=== PATIENT | female | born 1955 | race Caucasian/White ===

== ENCOUNTER 2016-10-18 08:50 | Emergency (ER) | payer BC ==
[~2016-10-18] VITALS: Ht 167.6 cm; Wt 78.4 kg
[~2016-10-18 08:50] MED LIST: FLEXERIL OR; PERCOCET 5/325M1 TAB PO; SINGULAIR 10 MG10 MG PO; SYNTHROID88 MCG PO; TRIAMT/HCTZ1 TAB OR
[2016-10-18 09:35] LABS: ALBUMIN 4.4 g/dL (3.2-5.0); ALKALINE PHOSPHATASE 113 u/l (38-126); ANION GAP 14 (6-22 (CALC)); BILIRUBIN, TOTAL 0.6 mg/dL (0.0-1.4); BUN 10 mg/dL (7-17); BUN/CREATININE RATIO 13 (12-20 (CALC)); CALCIUM 9.6 mg/dL (8.4-10.2); CARBON DIOXIDE 28 mmol/l (22-30); CHLORIDE 97 mmol/l (95-108); CREATININE 0.8 mg/dL (0.5-1.0); GFR > 60 ML/MIN (>=60 (CALC)); GFR FOR AFR.AMER. > 60 ML/MIN (>=60 (CALC)); GLUCOSE 104 mg/dL (65-105); HEMATOCRIT 43.6 % (37.0-47.0); HEMOGLOBIN 14.6 g/dl (12.0-16.0); IMMATURE GRANULOCYTES 0.1 % (0.0-1.0); MEAN CELL VOLUME 93.4 fL CALC (80.0-100.0); MEAN CORPUSCULAR HGB 31.3 pG CALC (26.0-32.0); MEAN CORPUSCULAR HGB CONC 33.5 g/L CALC (32.0-36.0); POTASSIUM 3.6 mmol/l (3.5-5.1); RED BLOOD COUNT 4.67 mill/uL (4.20-5.60); SGOT/AST 24 u/l (14-36); SGPT/ALT 23 u/l (9-52); SODIUM 136 mmol/l (137-146); TOTAL PROTEIN 8.3 g/dL (6.3-8.2)
[2016-10-18 09:47] LABS: D-DIMER 0.21 mg/L (0.19-0.60); INTERNATIONAL NORMALIZED RATIO 0.9 RATIO (0.7-1.3); MYOGLOBIN 26 ng/mL (0 - 62); PROTHROMBIN TIME 10.2 SECONDS (9.0-12.5)
[2016-10-18 11:32] LABS: URINE BILIRUBIN - DIPSTICK NEGATIVE (NEGATIVE); URINE BLOOD DIPSTICK NEGATIVE (NEGATIVE); URINE CLARITY CLEAR; URINE COLOR YELLOW; URINE GLUCOSE - DIPSTICK NEGATIVE (NEGATIVE); URINE KETONE NEGATIVE (NEGATIVE); URINE LEUK ESTERASE TRACE (Negative); URINE NITRITE - DIPSTICK NEGATIVE (Negative); URINE PH 6.5 (4.5-8.0); URINE PROTEIN - DIPSTICK NEGATIVE (NEG-TRACE); URINE UROBILINOGEN - DIPSTICK 0.2 E.U./dL (0.2)
[2016-10-18] MEDS ORDERED: TRAMADOL HYDROC50 MG PO (12:00)
[2016-10-18] MEDS ORDERED: MOTRIN800 MG PO (12:00)
[2016-10-18 12:22] VITALS: BP 145/70
== END 2016-10-18 12:22 | disposition home or self-care (01) | DRG 195 ==
LOC: ED 08:50
PROVIDERS: Emergency Medicine
DX: R09.1 Pleurisy (principal)
CPT/HCPCS: Q9967